=== PATIENT | female | born 1965 | race Caucasian/White ===

== ENCOUNTER 2018-12-31 11:23 | Emergency (ER) | payer SELFPAY ==
[2018-12-31] MEDS: KETOROLAC 60 MG INJ IM (13:33)
== END 2018-12-31 15:00 | disposition home or self-care (01) ==
LOC: FTE 11:23
DX: M25.521 Pain in right elbow (principal); M54.5 Low back pain
CPT/HCPCS: 72100; 73080-RT; 96372; 99284-25